=== PATIENT | male | born 1945 | race Caucasian/White ===

== ENCOUNTER 2018-01-13 22:07 | Emergency (ER) | payer MEDICARE, OTHER ==
[2018-01-13] MEDS ORDERED: LIDOCAINE HCL 2% VISC. ORAL 300MG/15ML UDC PO ONE (22:30)
[2018-01-13] MEDS ORDERED: MAG HYDROX/ALUMINUM HYD/SIMETH 30 ML UDC PO ONE (22:30)
[2018-01-13] MEDS ORDERED: PANTOPRAZOLE SODIUM 40 MG TABLET.DR PO ONE (22:31)
[2018-01-13] MEDS ORDERED: ONDANSETRON HCL/PF 4 MG/ 2ML VIAL IVP ONE (22:40)
--- NOTE | 2018-01-13 22:40 | ED Physician Documentation ---
Chest Pain - HISTORIAN Historian: patient - HPI Stated Complaint: Acid reflux Chief Complaint: Chest Pain Additional Information: Patient presents to ED with substernal burning chest pain 09/26, nonradiating since about 3:00 this afternoon. Patient states this morning he had a watery bowel movement. After lunch he began to belch a lot. He took his temperature after the burning chest pain started at 3:00pm and it was 100.0. He states he had Acid reflux and took Protonix in the past but his doctor weaned him off of it. He had [place] for lunch and Pizza for dinner. Onset: hours (12) Timing: gradual onset Duration: waxing, waning Last known Well Date: 01/13/18 Last Known Well Time: 12:00 Last known Well Code/Unknown Code: Unknown Context: other (after eating lunch) Severity: mild Quality: burning (09/26) Chest Pain Radiation: no radiation Chest Pain Signs/Symptoms: nausea Worsened By: nothing Relieved By: nothing. 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 01/13/18 - SOCIAL HX Smoking History: non-smoker Alcohol Use: none Drug Use: none - FAMILY HX Family HX: none - VITAL SIGNS Vital Signs: Vital Signs Temp Pulse Resp BP Pulse Ox 97.6 F 77 16 167/80 99 01/13/18 22:10 01/13/18 22:10 01/13/18 22:10 01/13/18 22:10 01/13/18 22:10 - REVIEWED ASSESSMENTS Nursing Assessment Reviewed: Yes Vitals Reviewed: Yes Progress - Progress Progress: 2250 Patient vomited prior to getting GI cocktail. 5 Patient feeling much better. Chest discomfort has resolved. - EKG/XRAY/CT Comments: Sinus ryhtym 83 bpm ED Results Lab/Radiology - Lab Results Lab Results: CBC - WNL CMP - WNL Troponin 0.00 BNP 62.3 - Radiology Radiology Impressions: Portable chest History: Chest pain Findings: The lungs are clear. There is no pleural effusion or pneumothorax. Heart size and pulmonary vascularity are normal. Impression: Normal chest. Electronically signed on Jan 13, 2018 11:14:45 PM CONFLICTS ANALYST by: Bebeto Calix - Orders Orders: ED Orders Category Date Time Status Place IV Lock 1T Care 01/13/18 22:36 Ordered CHEST 1VIEW [RAD] Stat Exams 01/13/18 Ordered BNP [NT-proBNP] Stat Lab 01/13/18 Ordered CBC/PLATELET/DIFF Routine Lab 01/13/18 Ordered CMP Routine Lab 01/13/18 Ordered TROPONIN I (cTnI) Stat Lab 01/13/18 Ordered Lidocaine 2%Visc 15ml [Xylocaine] Med 01/13/18 22:30 Discontinued 15 mg PO NOW ONE Mag Hydrox/Aluminum Hyd/Simeth [Mylanta] Med 01/13/18 22:30 Discontinued 30 ml PO NOW ONE Pantoprazole Sodium [Protonix] Med 01/13/18 22:31 Discontinued 40 mg PO NOW ONE EKG WITH COMPARISON Stat Ther 01/13/18 Ordered Chest Pain Physical Exam - EXAM General Appearance: no acute distress, alert EENT: USHA Neck: nml inspection Respiratory: no resp. distress, chest non-tender, nml breath sounds CVS: reg. rate & rhythm, no murmur Abdomen: soft, normal bowel sounds. No: tenderness Skin: diaphoresis Extremities: non-tender, no edema Neuro: oriented X3, motor nml Discharge Clincal Impression: Gastroenteritis Prescriptions: Ondansetron [Zofran Odt] 4 mg PO TID PRN #30 tab.rapdis PRN Reason: Nausea / Vomiting Pantoprazole Sodium [Protonix] 40 mg PO DAILY #30 tablet. Referrals: Enid Dillon, PRN [Primary Care Provider] - 2 Days Condition: Stable Disposition: 01 HOME, SELF-CARE Decision to Admit: NO Date of Decison to Admit: 01/13/18 Decision Time: 23:26
[2018-01-13] MEDS ORDERED: PANTOPRAZOLE SODIUM INJ. 40 MG VIAL ONE (22:52)
[2018-01-13] MEDS ORDERED: 0.9 % SODIUM CHLORIDE 50 ML IV ONE (22:52)
[2018-01-13] MEDS ORDERED: 0.9 % SODIUM CHLORIDE 1,000 ML IV ONE (23:00)
[2018-01-14 00:17] VITALS: BP 152/62
--- NOTE | 2018-01-14 05:28 | Diagnostic Imaging Report ---
RITU YEPEZ [facility] [id number] [facility] [address] [place] [address]. [id number] Report Submission Date: Jan 13, 2018 11:14:45 PM FURNACE MAINTENANCE Patient Study Name: SAIMA KELLER Date: Jan 13, 2018 10:53:43 PM FURNACE MAINTENANCE Modality Type: DX Gender: M Description: CHEST : 49 Institution: [facility] Physician: RITU YEPEZ Portable chest History: Chest pain Findings: The lungs are clear. There is no pleural effusion or pneumothorax. Heart size and pulmonary vascularity are normal. Impression: Normal chest. Electronically signed on Jan 13, 2018 11:14:45 PM FURNACE MAINTENANCE by: Bebeto BEE
[2018-01-14 08:27] LABS: BASOPHILS % 0.4 (0.0-1.5); MONOCYTES % 10.1 % (0.0-11.0); NEUTROPHILS # 3.2 # k/uL (1.4-7.7); eGFR (Non-African) > 60
[2018-01-14] MEDS ORDERED: PANTOPRAZOLE SODIUM 40 MG in 0.9 % SODIUM CHLORIDE 50 ML IV ONE (22:41)
== END 2018-01-13 23:50 | disposition home or self-care (01) ==
LOC: ED 22:07
DX: K52.9 Noninfective gastroenteritis and colitis, unspecified (principal)
CPT/HCPCS: 36415; 71045; 80053; 83880; 84484; 85025; 93005; 96365; 96375; 99283; 99284; A9270; J2405; J7030; S1016